=== PATIENT | female | born 1990 | race Caucasian/White ===

== ENCOUNTER 2018-07-23 10:38 | Emergency (ER) | payer SELFPAY ==
[~2018-07-23] VITALS: Ht 162.6 cm; Wt 64.0 kg
[2018-07-23] MEDS ORDERED: FLEXERIL5 M1 PO (11:50)
[2018-07-23] MEDS ORDERED: IBUPROFEN600 MG PO (11:50)
[2018-07-23 12:00] VITALS: BP 118/76
== END 2018-07-23 12:00 | disposition home or self-care (01) | DRG 563 ==
LOC: ED 10:38
DX: S46.911A Strain of unspecified muscle, fascia and tendon at shoulder and upper arm level, right arm, initial encounter (principal); X58.XXXA Exposure to other specified factors, initial encounter

== ENCOUNTER 2018-10-01 21:44 | Emergency (ER) | payer SELFPAY ==
[~2018-10-01] VITALS: Ht 162.6 cm; Wt 68.4 kg
[~2018-10-01 21:44] MED LIST: FLEXERIL5 M1 PO; IBUPROFEN600 MG PO
[2018-10-01 22:38] LABS: INFLUENZA A NONE DETECTED (NONE DETECT); INFLUENZA B NONE DETECTED (NONE DETECT)
[2018-10-01] MEDS ORDERED: CODEINE/GUAIFEN1 SOL PO (22:44)
[2018-10-01 22:55] VITALS: BP 118/75
== END 2018-10-01 22:55 | disposition home or self-care (01) | DRG 203 ==
LOC: ED 21:44
PROVIDERS: Emergency Medicine
DX: J40 Bronchitis, not specified as acute or chronic (principal); F17.210 Nicotine dependence, cigarettes, uncomplicated

== ENCOUNTER 2019-03-09 17:16 | Emergency (ER) | payer SELFPAY ==
[~2019-03-09] VITALS: Ht 162.6 cm; Wt 58.0 kg
[~2019-03-09 17:16] MED LIST changes: +CODEINE/GUAIFEN1 SOL PO
[2019-03-09 18:19] LABS: URINE BILIRUBIN - DIPSTICK NEGATIVE (NEGATIVE); URINE BLOOD DIPSTICK NEGATIVE (NEGATIVE); URINE COLOR YELLOW; URINE GLUCOSE - DIPSTICK NEGATIVE (NEGATIVE); URINE KETONE NEGATIVE (NEGATIVE); URINE LEUK ESTERASE NEGATIVE (NEGATIVE); URINE NITRITE - DIPSTICK NEGATIVE (Negative); URINE PH 5.5 (4.5-8.0); URINE PROTEIN - DIPSTICK NEGATIVE (NEG-TRACE); URINE SPECIFIC GRAVITY >=1.030; URINE UROBILINOGEN - DIPSTICK 0.2 E.U./dL (0.2)
[2019-03-09 20:05] VITALS: BP 115/64
== END 2019-03-09 20:05 | disposition home or self-care (01) | DRG 833 ==
LOC: ED 17:16
PROVIDERS: Family Medicine
DX: O20.9 Hemorrhage in early pregnancy, unspecified (principal); O99.331 Smoking (tobacco) complicating pregnancy, first trimester; F17.200 Nicotine dependence, unspecified, uncomplicated; Z3A.01 Less than 8 weeks gestation of pregnancy

== ENCOUNTER 2020-10-19 18:15 | Emergency (ER) | payer OTHER ==
[~2020-10-19] VITALS: Ht 162.6 cm; Wt 80.0 kg
[2020-10-19 18:55] LABS: URINE BILIRUBIN - DIPSTICK NEGATIVE (NEGATIVE); URINE BLOOD DIPSTICK NEGATIVE (NEGATIVE); URINE CLARITY CLEAR; URINE COLOR YELLOW; URINE GLUCOSE - DIPSTICK NEGATIVE (NEGATIVE); URINE KETONE NEGATIVE (NEGATIVE); URINE LEUK ESTERASE NEGATIVE (Negative); URINE NITRITE - DIPSTICK NEGATIVE (Negative); URINE PH 5.5 (4.5-8.0); URINE PROTEIN - DIPSTICK NEGATIVE (NEG-TRACE); URINE SPECIFIC GRAVITY >=1.030; URINE UROBILINOGEN - DIPSTICK 0.2 E.U./dL (0.2)
[2020-10-19] MEDS ORDERED: CYCLOBENZAPRINE10 MG PO (20:07)
[2020-10-19 20:20] VITALS: BP 131/70
== END 2020-10-19 20:20 | disposition home or self-care (01) ==
LOC: ED 18:15
DX: G62.9 Polyneuropathy, unspecified (principal); M54.2 Cervicalgia; F17.200 Nicotine dependence, unspecified, uncomplicated

== ENCOUNTER 2020-12-29 18:20 | Emergency (ER) | payer OTHER ==
[~2020-12-29] VITALS: Ht 162.6 cm; Wt 64.0 kg
[~2020-12-29 18:20] MED LIST changes: +CYCLOBENZAPRINE10 MG PO
[2020-12-29] MEDS ORDERED: TESSALON PERLE100 MG PO (19:50)
[2020-12-29 19:54] VITALS: BP 118/70
== END 2020-12-29 19:59 | disposition home or self-care (01) ==
LOC: ED 18:20
DX: B34.9 Viral infection, unspecified (principal); F17.200 Nicotine dependence, unspecified, uncomplicated; Z20.822 Contact with and (suspected) exposure to COVID-19

== ENCOUNTER 2021-09-20 16:22 | Emergency (ER) | payer OTHER ==
[~2021-09-20] VITALS: Ht 162.6 cm; Wt 70.0 kg
[~2021-09-20 16:22] MED LIST changes: +TESSALON PERLE100 MG PO
[2021-09-20] MEDS ORDERED: ZOLPIDEM5 M1 PO (17:10)
[2021-09-20] MEDS ORDERED: TRILEPTAL300 MG PO (17:10)
[2021-09-20] MEDS ORDERED: TRILEPTAL150 MG PO (17:11)
[2021-09-20 17:15] LABS: URINE BILIRUBIN - DIPSTICK NEGATIVE (NEGATIVE); URINE BLOOD DIPSTICK NEGATIVE (NEGATIVE); URINE COLOR YELLOW; URINE GLUCOSE - DIPSTICK NEGATIVE (NEGATIVE); URINE KETONE NEGATIVE (NEGATIVE); URINE LEUK ESTERASE NEGATIVE (NEGATIVE); URINE PH 6.5 (4.5-8.0); URINE PROTEIN - DIPSTICK NEGATIVE (NEG-TRACE); URINE SPECIFIC GRAVITY 1.025; URINE UROBILINOGEN - DIPSTICK 0.2 E.U./dL (0.2)
[2021-09-20 17:20] LABS: URINE NITRITE - DIPSTICK NEGATIVE (Negative)
[2021-09-20 19:20] VITALS: BP 109/73
== END 2021-09-20 19:20 | disposition home or self-care (01) ==
LOC: ED 16:22
PROVIDERS: Emergency Medicine
DX: N83.201 Unspecified ovarian cyst, right side (principal); F17.210 Nicotine dependence, cigarettes, uncomplicated

== ENCOUNTER 2022-01-15 21:53 | Emergency (ER) | payer OTHER ==
[~2022-01-15] VITALS: Ht 162.6 cm; Wt 59.0 kg
[~2022-01-15 21:53] MED LIST changes: +TRILEPTAL150 MG PO; +TRILEPTAL300 MG PO; +ZOLPIDEM5 M1 PO
[2022-01-15 22:53] VITALS: BP 105/73
[2022-01-15 23:01] VITALS: BP 120/71
[2022-01-15 23:30] VITALS: BP 117/75
[2022-01-16] VITALS: BP 119/79
[2022-01-16 00:30] VITALS: BP 114/72
[2022-01-16 04:32] VITALS: BP 114/72
== END 2022-01-16 00:56 | disposition home or self-care (01) ==
LOC: ED 21:53
DX: S61.210A Laceration without foreign body of right index finger without damage to nail, initial encounter (principal); F17.200 Nicotine dependence, unspecified, uncomplicated; W45.8XXA Other foreign body or object entering through skin, initial encounter; Y93.E9 Activity, other interior property and clothing maintenance; Y92.009 Unspecified place in unspecified non-institutional (private) residence as the place of occurrence of the external cause

== ENCOUNTER 2022-05-22 13:48 | Emergency (ER) | payer OTHER ==
[~2022-05-22] VITALS: Ht 162.6 cm; Wt 70.0 kg
[2022-05-22] MEDS ORDERED: OMNICEF300 M1 PO (15:30)
[2022-05-22] MEDS ORDERED: NAPRELAN500 MG PO (15:30)
[2022-05-22 16:12] VITALS: BP 132/86
== END 2022-05-22 15:38 | disposition home or self-care (01) ==
LOC: ED 13:48
DX: M27.69 Other endosseous dental implant failure (principal); F17.200 Nicotine dependence, unspecified, uncomplicated

== ENCOUNTER 2024-11-13 17:41 | Emergency (ER) | payer OTHER ==
[~2024-11-13] VITALS: Ht 160 cm; Wt 60.0 kg
[~2024-11-13 17:41] MED LIST changes: +NAPRELAN500 MG PO; +OMNICEF300 M1 PO
[2024-11-13] MEDS ORDERED: PERCOCET 5/325M1 TAB PO (22:22)
[2024-11-13] MEDS ORDERED: AMOX/K CLAV875 M1 PO (22:22)
[2024-11-13] MEDS ORDERED: LIDOCAINE21 MT (22:22)
[2024-11-13] MEDS ORDERED: oxyCODONE 5MG/ ACETAMINOPHEN 325MG TAB PO ONE (22:25)
[2024-11-13] MEDS ORDERED: AMOXICILLIN & POT CLAVULANATE 875 MG/TAB PO ONE (22:25)
[2024-11-13] MEDS ORDERED: LIDOCAINE VISCOUS 2% 15 ML UDC PO ONE (22:25)
[2024-11-13 23:30] VITALS: BP 101/62
== END 2024-11-13 23:30 | disposition home or self-care (01) ==
LOC: ED 17:41
DX: S02.5XXA Fracture of tooth (traumatic), initial encounter for closed fracture (principal); F17.200 Nicotine dependence, unspecified, uncomplicated; X58.XXXA Exposure to other specified factors, initial encounter